=== PATIENT | female | born 1980 | race Caucasian/White ===

== ENCOUNTER 2021-08-25 12:03 | Emergency (ER) | payer SELFPAY ==
[~2021-08-25] VITALS: Ht 152.4 cm; Wt 64.0 kg
[2021-08-25] MEDS ORDERED: BACITRACIN ZINC OINT UDPKT TOP ONE (12:30)
[2021-08-25] MEDS ORDERED: IBUPROFEN 600MG TABLET PO ONE (12:30)
[2021-08-25] MEDS ORDERED: TETANUS, DIPHTHERIA, PERTUSSIS VAC/PF 0.5ML (>10YR OLD) IM ONE (12:30)
[2021-08-25 12:48] VITALS: BP 125/82
[2021-08-25] MEDS ORDERED: AMOX-424 PO (13:59)
[2021-08-25] MEDS ORDERED: IBUP-2029 PO (13:59)
== END 2021-08-25 14:12 | disposition home or self-care (01) ==
LOC: ER 14:12
DX: S61.451A Open bite of right hand, initial encounter (principal); W54.0XXA Bitten by dog, initial encounter; Y93.9 Activity, unspecified; Y92.9 Unspecified place or not applicable
CPT/HCPCS: 73130; 81025; 90471; 90715; 99283

== ENCOUNTER 2021-08-27 17:27 | Emergency (ER) | payer MEDICAID ==
[~2021-08-27] VITALS: Ht 147.3 cm; Wt 85.0 kg
[~2021-08-27 17:27] MED LIST: AMOX-424 PO; IBUP-2029 PO
[2021-08-27] MEDS ORDERED: SULF1TAB47 MT (19:51)
[2021-08-27] MEDS ORDERED: SULFAMETHOXAZOLE/TRIMETHOPRIM 800/160MG TABLET PO ONE (20:00)
[2021-08-27] MEDS ORDERED: IBUPROFEN 600MG TABLET PO ONE (20:00)
[2021-08-27] MEDS ORDERED: CEFTRIAXONE 250MG/ML (FOR IM ONLY) IM ONE (20:00)
[2021-08-27 20:40] VITALS: BP 131/69
== END 2021-08-27 20:45 | disposition home or self-care (01) ==
LOC: ER 17:27
DX: S61.451A Open bite of right hand, initial encounter (principal); L03.113 Cellulitis of right upper limb; W54.0XXA Bitten by dog, initial encounter; Y93.89 Activity, other specified; Y92.018 Other place in single-family (private) house as the place of occurrence of the external cause
CPT/HCPCS: 73130; 99283